=== PATIENT | female | born 1960 | race Caucasian/White ===

== ENCOUNTER → 2017-11-30 | Day surgery (SDC) | payer BC ==
[~2017-11-30] MED LIST: Propofol 200 MG/20 ML SDV IV ONE
[2017-11-30] MEDS: Lactated Ringers 1,000 ML IV SCH (11:45)
--- NOTE | 2017-11-30 13:30 | OR ---
DATE OF OPERATION: 11/30/2017 PREOPERATIVE DIAGNOSIS: FAMILY HISTORY OF COLON CANCER. POSTOPERATIVE DIAGNOSIS: FAMILY HISTORY OF COLON CANCER. SURGEON: Samson Gentile MD PROCEDURE: FULL-LENGTH COLONOSCOPY. ANESTHESIA: BOOKSEAMER BLINDSTITCH. COMPLICATIONS: None. SPECIMEN: None. FINDINGS: 1. Normal full-length colonoscopy. 2. Minimal to mild sigmoid diverticulosis. RECOMMENDATIONS: Follow up colonoscopy every 5 years. INDICATIONS: Ms. Maya has a family history of colon CA in her brother. She is due for a routine followup colonoscopy. DESCRIPTION OF PROCEDURE: The patient was prepped and draped and placed in the left lateral decubitus position. A lubricated Olympus colonoscope was inserted and safely and easily advanced to the cecum. Direct visualization of the ileocecal valve was accomplished. The bowel prep was excellent. Upon withdrawal of the scope, throughout the length of the colon, I could find no signs of any polyps, mass, ulceration, or bleeding sites. No vascular abnormalities or signs of colitis. The patient had a few scattered diverticula in the sigmoid area, very minimal in severity. No acute inflammatory change is seen. The rectal vault was benign. Retroflexion of the scope in the rectum showed no anal lesions. Air was suctioned. Scope was removed without complication. JANIA/SKYLAR /[id number]
[2017-11-30 13:35] VITALS: BP 136/68
== END ==
LOC: CC.SDS 11:24
PROVIDERS: ATTEND Family Medicine
DX: Z12.11 Encounter for screening for malignant neoplasm of colon (principal); K57.30 Diverticulosis of large intestine without perforation or abscess without bleeding; Z80.0 Family history of malignant neoplasm of digestive organs
CPT/HCPCS: 45378; J7120

== ENCOUNTER 2019-08-10 14:05 | Emergency (ER) | payer BC ==
[2019-08-10] MEDS ORDERED: Ketorolac 10 MG Tab PO ONE (14:06)
[2019-08-10 14:17] VITALS: BP 119/73; PULSE 73
--- NOTE | 2019-08-10 14:27 | EDM.PDOC ---
ED HPI GENERAL MEDICAL PROBLEM - General Chief Complaint: Upper Extremity Injury/Pain Stated Complaint: L arm pain/injury Time Seen by Provider: 08/10/19 14:15 Source of Information: Reports: Patient History Limitations: Reports: No Limitations - History of Present Illness INITIAL COMMENTS - FREE TEXT/NARRATIVE: Patient to the emergency department complaining of left shoulder pain, the patient advises that she actually fell on the ice landed on her shoulder at the end of June and has been having pain off and on to the shoulder. The patient denies any numbness or tingling she does advise symptoms are worse with range of motion. She denies any chest pain or shortness of breath she denies any back pain she does have some mild left neck area tenderness. But again there is no numbness or tingling and pain does not radiate into her arm. The patient denies any other symptoms Onset: Gradual Duration: Week(s): (End June 2019), Getting Worse Location: Reports: Upper Extremity, Left Quality: Reports: Ache Severity: Moderate Improves with: Reports: None Worsens with: Reports: Movement Associated Symptoms: Denies: Chest Pain, Cough, Fever/Chills, Headaches, Nausea/ Vomiting, Shortness of Breath, Syncope, Weakness Treatments DECISION SUPPORT MANAGER: Reports: Acetaminophen, NSAIDS Left shoulder/neck/arm Pain Score (Numeric/FACES): 7 - Related Data Allergies Allergy/AdvReac Type Severity Reaction Status Date / Time No Known Allergies Allergy Verified 08/10/19 14:07 Home Meds: Home Meds Aspirin [Low Dose Aspirin EC] 81 mg PO DAILY 05/06/14 [History] Cholecalciferol (Vitamin D3) [Vitamin D3] 5,000 unit PO DAILY 05/06/14 [History] Ibuprofen 800 mg PO ASDIRECTED PRN 05/06/14 [History] Levothyroxine [Sythroid] 100 mcg PO DAILY 05/06/14 [History] Ubidecarenone [COQ-10] 1 cap PO DAILY 05/06/14 [History] atorvaSTATin Calcium [Atorvastatin Calcium] 20 mg PO DAILY 05/06/14 [History] Biotin 5,000 mcg PO DAILY 11/29/17 [History] Vitamin B Complex 1 each PO DAILY 11/29/17 [History] Ketorolac [Toradol] 10 mg PO TID PRN 5 Days #12 tab 08/10/19 [Rx] Past Medical History Cardiovascular History: Reports: High Cholesterol Endocrine/Metabolic History: Reports: Hypothyroidism Social & Family History - Family History Cardiac: Reports: Hypertension - Tobacco Use Smoking Status *Q: Unknown Ever Smoked - Living Situation & Occupation Living situation: Reports: , with Family Review of Systems - Review of Systems Review Of Systems: See Below Constitutional: Reports: No Symptoms. Denies: Chills, Fever Ears: Reports: No Symptoms Nose: Reports: No Symptoms Mouth/Throat: Reports: No Symptoms Respiratory: Reports: No Symptoms. Denies: Shortness of Breath Cardiovascular: Reports: No Symptoms. Denies: Chest Pain, Edema, Irregular Heart Rate, Lightheadedness, Palpitations, Syncope GI/Abdominal: Reports: No Symptoms. Denies: Abdominal Pain, Nausea, Vomiting Genitourinary: Reports: No Symptoms Musculoskeletal: Reports: Neck Pain, Shoulder Pain. Denies: Back Pain, Hand Pain, Leg Pain Skin: Reports: No Symptoms. Denies: Bruising, Rash, Erythema Neurological: Reports: No Symptoms. Denies: Dizziness, Headache, Numbness, Tingling, Weakness Psychiatric: Reports: No Symptoms ED EXAM, GENERAL - Physical Exam Exam: See Below Exam Limited By: No Limitations General Appearance: Alert, WD/WN, No Apparent Distress Ears: Normal External Exam Nose: Normal Inspection Throat/Mouth: Normal Inspection, Normal Lips, Normal Voice, No Airway Compromise Head: Atraumatic, Normocephalic Neck: Normal Inspection, Supple, Non-Tender, Full Range of Motion Respiratory/Chest: No Respiratory Distress, Lungs Clear, Normal Breath Sounds, Chest Non-Tender Cardiovascular: Normal Peripheral Pulses, Regular Rate, Rhythm, No Murmur Peripheral Pulses: 2+: Radial (L), Radial (R) GI/Abdominal: Soft, Non-Tender Back Exam: Normal Inspection, Full Range of Motion. No: Muscle Spasm, Paraspinal Tenderness, Vertebral Tenderness Extremities: Normal Inspection, Normal Capillary Refill. No: Non-Tender ( Tenderness in the left shoulder with range of motion) Neurological: Alert, Oriented, Normal Cognition, Normal Gait, No Motor/Sensory Deficits Psychiatric: Normal Affect, Normal Mood Skin Exam: Warm, Dry, Intact, Normal Color, No Rash Course - Vital Signs Text/Narrative:: X-ray of the left shoulder was obtained is does not show any acute fracture dislocation. The patient will be discharged home with Toradol 10 mg 3 times daily as needed the patient will be advised to follow-up with Ortho or the family doctor in the next week or so if not better she is to return emergency department sooner if worsening problems Last Recorded V/S: Last Vital Signs Temp 36.3 C 08/10/19 14:13 Pulse 73 08/10/19 14:13 Resp 18 08/10/19 14:13 BP 119/73 08/10/19 14:13 Pulse Ox 97 08/10/19 14:13 - Orders/Labs/Meds Orders: Active Orders 24 hr Category Date Time Status Shoulder Comp Lt [CR] Stat Exams 08/10/19 14:29 Ordered Departure - Departure Time of Disposition: 14:47 Disposition: Home, Self-Care 01 Condition: Good Clinical Impression: Fall, Sprain of left shoulder - Discharge Information *PRESCRIPTION DRUG MONITORING PROGRAM REVIEWED*: Not Applicable *COPY OF PRESCRIPTION DRUG MONITORING REPORT IN PATIENT YINA: Not Applicable Prescriptions: Ketorolac [Toradol] 10 mg PO TID PRN 5 Days #12 tab PRN Reason: Pain (Moderate 4-6) Instructions: Shoulder Pain, [id number] Forms: ED Department Discharge Additional Instructions: Toradol 10 mg every 8 hours as needed for pain Apply warm moist heat off-and-on frequently Follow-up with your family doctor in 4 to 5 days if not better Return to the emergency department as needed Sepsis Event Note - Evaluation Sepsis Screening Result: No Definite Risk - Focused Exam Vital Signs: Vital Signs Temp Pulse Resp BP Pulse Ox 08/10/19 14:13 36.3 C 73 18 119/73 97 Date Exam was Performed: 08/10/19 Time Exam was Performed: 14:47 - Problem List & Annotations (1) Fall SNOMED Code(s): 5424422, 196057012 Code(s): W19.XXXA - UNSPECIFIED FALL, INITIAL ENCOUNTER Status: Acute Priority: Medium Current Visit: Yes Qualifiers: Encounter type: initial encounter Qualified Code(s): W19.XXXA - Unspecified fall, initial encounter (2) Sprain of left shoulder SNOMED Code(s): 3724820 Code(s): S43.402A - UNSPECIFIED SPRAIN OF LEFT SHOULDER JOINT, INITIAL ENCOUNTER Status: Acute Priority: Medium Current Visit: Yes Qualifiers: Encounter type: initial encounter Shoulder sprain type: unspecified sprain Qualified Code(s): S43.402A - Unspecified sprain of left shoulder joint, initial encounter - Problem List Review Problem List Initiated/Reviewed/Updated: Yes - My Orders Last 24 Hours: My Active Orders 08/10/19 14:29 Shoulder Comp Lt [CR] Stat - Assessment/Plan Last 24 Hours: My Active Orders 08/10/19 14:29 Shoulder Comp Lt [CR] Stat Plan: as above
[2019-08-10] MEDS ORDERED: Take Home: Ketorolac 10 MG Tab, 4 Tab Pack PO ONE (14:51)
== END 2019-08-10 15:00 | disposition home or self-care (01) ==
LOC: CC.ED 14:05
DX: S43.402A Unspecified sprain of left shoulder joint, initial encounter (principal); I10 Essential (primary) hypertension; E78.00 Pure hypercholesterolemia, unspecified; E03.9 Hypothyroidism, unspecified; Z79.82 Long term (current) use of aspirin; Z79.899 Other long term (current) drug therapy; W19.XXXA Unspecified fall, initial encounter
CPT/HCPCS: 73030-LT; 99283-25; A9270-GY

== ENCOUNTER → 2022-12-22 | Day surgery (SDC) | payer BC, OTHER ==
[~2022-12-22] MED LIST changes: +Ketamine 200 MG/20 ML MDV ONE; +Lactated Ringers 1,000 ML IV SCH; -Propofol 200 MG/20 ML SDV IV ONE; +Propofol 200 MG/20 ML SDV ONE; +fentaNYL 50 MCG/ML SDV ONE
[2022-12-22 08:47] VITALS: BP 115/65; PULSE 58
== END ==
LOC: CC.SDS 06:59
PROVIDERS: ATTEND Family Medicine
DX: Z12.11 Encounter for screening for malignant neoplasm of colon (principal); D12.0 Benign neoplasm of cecum; D12.3 Benign neoplasm of transverse colon; K63.5 Polyp of colon; K57.30 Diverticulosis of large intestine without perforation or abscess without bleeding; E03.9 Hypothyroidism, unspecified; E78.00 Pure hypercholesterolemia, unspecified; M19.90 Unspecified osteoarthritis, unspecified site; F17.200 Nicotine dependence, unspecified, uncomplicated; E66.9 Obesity, unspecified; Z80.0 Family history of malignant neoplasm of digestive organs; Z79.899 Other long term (current) drug therapy; Z79.82 Long term (current) use of aspirin; Z79.890 Hormone replacement therapy; Z68.31 Body mass index [BMI] 31.0-31.9, adult
CPT/HCPCS: 00811; J2704; J3010; J3490; J7120